=== PATIENT | male | born 1995 | race African-American/Black ===

== ENCOUNTER 2022-01-11 15:14 | Emergency (ER) | payer OTHER ==
[~2022-01-11] VITALS: Ht 162.6 cm; Wt 56.7 kg
[2022-01-11 15:19] VITALS: BP 126/76
== END 2022-01-11 16:20 ==
LOC: ER 15:20
DX: S00.93XA Contusion of unspecified part of head, initial encounter (principal); M79.641 Pain in right hand; Z60.2 Problems related to living alone; Y08.89XA Assault by other specified means, initial encounter; Y93.89 Activity, other specified; Y92.89 Other specified places as the place of occurrence of the external cause; Y99.8 Other external cause status